=== PATIENT | male | born 1980 | race Caucasian/White ===

== ENCOUNTER 2020-05-07 11:10 | Observation (INO) ==
[2020-05-07] MEDS ORDERED: Ketorolac 15 MG/ML VIAL IVP ONE (11:26)
[2020-05-07] MEDS ORDERED: Ondansetron 4 MG/2 ML VIAL IVP ONE ×3 (11:39→20:35)
[2020-05-07 12:21] LABS: Bacteria,Urine Few per hpf (None-Few); Bilirubin,Urine Negative (Negative); Blood,Urine Trace (Negative); Clarity,Urine Clear (Clear); Color,Urine Yellow (Yellow); Glucose,Urine (UA) Normal (Normal); Ketones,Urine Negative (Negative); Leukocyte Esterase,Urine Small (Negative); Mucus,Urine Few per lpf (None-Few); Nitrite,Urine Negative (Negative); PH,Urine 5.5 pH Units (5.0-8.0); Protein,Urine 30 mg/dL (Neg-Trace); Specific Gravity,Urine 1.023 (1.010-1.025); Squamous Epithelial Cell,Urine Few per hpf (None-Few); Urobilinogen,Urine Normal (Normal); WBC,Urine 30-50 per hpf (0-3)
[2020-05-07 12:55] LABS: Basophils % 0.3 %; Eosinophils # 0.3 K/mcL (0.0-0.6); Hematocrit 36.9 % (37.5-50.1); Hemoglobin 12.2 g/dL (12.9-16.9); Immature Granulocytes % 0.6 % (0-4); Lymphocytes # 1.9 K/mcL (0.6-4.6); Lymphocytes % 22.3 %; Mean Corpuscular HGB Conc 33.1 g/dL (31.6-35.5); Mean Corpuscular Hemoglobin 27.6 pg (28.0-33.3); Mean Corpuscular Volume 83.5 fL (83.0-100.0); Mean Platelet Volume 8.8 fL (9.4-12.4); Monocytes # 0.8 K/mcL (0.0-1.3); Monocytes % 9.1 %; Neutrophils # 5.6 K/mcL (1.6-8.9); Platelet Count 293 K/mcL (140-400); Red Blood Count 4.42 M/mcL (4.19-5.50); Red Cell Distribution Width 12.8 % (11.5-14.5); Segmented Neutrophils % 64.7 %; White Blood Count 8.6 K/mcL (4.3-11.1)
[2020-05-07 13:17] LABS: BUN/Creatinine Ratio 10 (6-26); Blood Urea Nitrogen 13 mg/dL (6-20); Calcium 8.4 mg/dL (8.6-10.3); Carbon Dioxide 21 mEq/L (23-29); Chloride 102 mEq/L (98-107); Glucose 214 mg/dL (70-105); Osmolality,Calculated 285 (280-300); Sodium 134 mEq/L (136-145); eGFR For African Americans > 60 (> 60); eGFR For Non-African Americans > 60 (> 60)
[2020-05-07] MEDS ORDERED: cefTRIAXone 1,000 MG in Water for inj. (sterile) 10 ML IVP ONE (13:45)
[2020-05-07] MEDS ORDERED: Naloxone 0.4 MG/ML INJ IVP PRN ×2 (14:04→20:35)
[2020-05-07] MEDS ORDERED: Ketorolac 15 MG/ML VIAL IVP PRN ×2 (14:04→20:35)
[2020-05-07] MEDS ORDERED: Ondansetron 4 MG/2 ML VIAL IVP PRN ×2 (14:04→20:35)
[2020-05-07] MEDS ORDERED: 0.9 % Sodium Chloride 1,000 ML IVC SCH (14:15)
[2020-05-07] MEDS ORDERED: *HR* Heparin 5,000 UNIT/ML VIAL SQ SCH (18:00)
[2020-05-07] MEDS ORDERED: *HR* HYDROmorphone PF 0.5 MG/0.5 ML SYRINGE IVP PRN ×2 (18:03→20:35)
[2020-05-07] MEDS ORDERED: *HR* OxyCODONE Immed Rel 5 MG TABLET PO PRN ×2 (18:03→20:35)
[2020-05-07] MEDS ORDERED: *HR* Promethazine 25 MG/ML VIAL IVP PRN ×2 (18:03→20:35)
[2020-05-07] MEDS ORDERED: Isovue-300 50ML VIAL ONE (18:29)
[2020-05-07] MEDS ORDERED: *HR* Propofol 200 MG/20 ML VIAL IVP ONE (18:29)
[2020-05-07] MEDS ORDERED: *HR* FentaNYL (PF) 100 MCG/2 ML VIAL ONE (18:29)
[2020-05-07] MEDS ORDERED: Lidocaine -MPF 4% 5 ML AMPUL ONE (18:32)
[2020-05-07] MEDS ORDERED: Lidocaine -MPF 2% 2 ML VIAL ONE (18:36)
[2020-05-07] MEDS ORDERED: *HR* Succinylcholine 200 MG/10 ML VIAL IVP ONE (18:36)
[2020-05-07] MEDS ORDERED: Ondansetron 4 MG/2 ML VIAL ONE (19:04)
[2020-05-07] MEDS ORDERED: Dexamethasone 4 MG/ML VIAL ONE (19:05)
[2020-05-07] MEDS ORDERED: Acetaminophen IV 1,000 MG/100 ML BAG IVPB ONE (20:00)
[2020-05-07] MEDS ORDERED: Acetaminophen IV 1,000 MG/100 ML BAG ONE (20:07)
[2020-05-07] MEDS ORDERED: allopurinoL 100 MG TABLET PO SCH ×2 (21:00)
[2020-05-07] MEDS ORDERED: FLUoxetine 20 MG CAPSULE PO SCH ×2 (21:00)
[2020-05-07] MEDS ORDERED: Colchicine 0.6 MG TABLET PO SCH ×2 (21:00)
[2020-05-07] MEDS: 0.9 % Sodium Chloride 1,000 ML IVC SCH (21:18)
[2020-05-08] MEDS: 0.9 % Sodium Chloride 1,000 ML IVC SCH (03:19)
[2020-05-08 05:36] LABS: Hematocrit 37.6 % (37.5-50.1); Hemoglobin 12.5 g/dL (12.9-16.9); Mean Corpuscular HGB Conc 33.2 g/dL (31.6-35.5); Mean Corpuscular Volume 84.1 fL (83.0-100.0); Mean Platelet Volume 8.6 fL (9.4-12.4); Platelet Count 298 K/mcL (140-400); Red Blood Count 4.47 M/mcL (4.19-5.50); Red Cell Distribution Width 12.7 % (11.5-14.5)
[2020-05-08 05:57] LABS: BUN/Creatinine Ratio 15 (6-26); Blood Urea Nitrogen 15 mg/dL (6-20); Calcium 8.7 mg/dL (8.6-10.3); Carbon Dioxide 22 mEq/L (23-29); Chloride 103 mEq/L (98-107); Glucose 249 mg/dL (70-105); Magnesium 1.6 mg/dL (1.6-2.6); Osmolality,Calculated 287 (280-300); Phosphorous 3.4 mg/dL (2.7-4.5); Potassium 4.3 mEq/L (3.5-5.1); Sodium 134 mEq/L (136-145); eGFR For African Americans > 60 (> 60); eGFR For Non-African Americans > 60 (> 60)
[2020-05-08] MEDS ORDERED: *HR* Heparin 5,000 UNIT/ML VIAL SQ SCH (06:00)
[2020-05-08 07:24] VITALS: BP 145/85
[2020-05-08] MEDS ORDERED: BuPROPion XL (24 HR) 150 MG TABLET PO SCH ×2 (09:00)
== END 2020-05-08 11:27 | disposition home or self-care (01) ==
LOC: EMEROOARM 11:10 → 3BNU 11:10
PROVIDERS: ADMIT Internal Medicine; ATTEND Internal Medicine